=== PATIENT | female | born 1945 | race Hispanic/Latino ===

== ENCOUNTER 2017-08-14 09:03 | Outpatient (CLI) | payer MEDICARE ==
--- NOTE | 2017-08-14 14:46 | Mammography Report ---
BILATERAL DIGITAL SCREENING MAMMOGRAM with CAD: 08/14/17 09:03:00 CLINICAL: Routine screening. COMPARISON:03/12/16 FINDINGS: The breasts are heterogeneously dense, which may obscure small masses. No mass, architectural distortion or suspicious calcifications. IMPRESSION: No mammographic evidence of malignancy. BI-RADS CATEGORY: 1 - - Negative RECOMMENDATION: Routine mammographic screening in one year. COMMENT: Patient follow-up letters are generated by our [employer] application.
== END 2017-08-14 09:04 | disposition home or self-care (01) ==
LOC: SPVWC 09:03
PROVIDERS: ATTEND Family Medicine
DX: Z12.31 Encounter for screening mammogram for malignant neoplasm of breast (principal)
CPT/HCPCS: 77067; G0202

== ENCOUNTER 2019-10-19 11:55 | Outpatient (CLI) | payer MEDICARE ==
--- NOTE | 2019-10-20 12:51 | Mammography Report ---
DIGITAL SCREENING MAMMOGRAM WITH CAD, 10/19/2019 INDICATION: Routine screening mammography. TECHNIQUE: Digital bilateral 2D mammography was obtained in the craniocaudal and mediolateral obliq ue projections. This examination was interpreted with the benefit of Computer-Aided Detection analysi s. COMPARISON: 03/12/2016 FINDINGS: Breast Density: The breasts are heterogeneously dense, which may obscure small masses. There is no evidence of dominant mass, suspicious calcifications or architectural distortion in eithe r breast. IMPRESSION: No mammographic evidence of malignancy. Follow up recommendation: Routine yearly BI-RADS Category 1: Negative. A "normal" or negative report should not discourage follow up or biopsy of a clinically significant f inding. A written summary of these findings will be mailed to the patient. The patient will be entered into a mammography reporting system which will generate a reminder letter for the patient's next appointmen t at the appropriate interval. The [employer] recommends yearly mammograms starting at age 40 and continuing as l carmen as a woman is in good health. Breast MRI is recommended for women with an approximate 20-25% or greater lifetime risk of breast cancer, including women with a strong family history of breast or ova sampson cancer or who have been treated for Hodgkin's disease. Signer Name: Maury Barriga MD Signed: 10/20/2019 12:47 PM Workstation Name: [id number]
== END 2019-10-19 11:56 | disposition home or self-care (01) ==
LOC: SPVWC 11:55
PROVIDERS: ATTEND Obstetrics & Gynecology
DX: Z12.31 Encounter for screening mammogram for malignant neoplasm of breast (principal)
CPT/HCPCS: 77067

== ENCOUNTER 2022-02-04 09:13 | Outpatient (CLI) | payer MEDICARE ==
--- NOTE | 2022-02-05 16:45 | Mammography Report ---
DIGITAL SCREENING MAMMOGRAM WITH CAD, 02/04/2022 CLINICAL INFORMATION / INDICATION: Routine screening mammography. TECHNIQUE: Digital bilateral 2D mammography was obtained in the craniocaudal and mediolateral obliqu e projections. This examination was interpreted with the benefit of Computer-Aided Detection analysis . COMPARISON: Prior mammogram 10/19/2019 FINDINGS: Breast Density: The breasts are heterogeneously dense, which may obscure small masses. No dominant mass, suspicious calcifications, or architectural distortion in either breast. There has been no significant change compared with the prior examination. IMPRESSION: No mammographic evidence of malignancy. Follow up recommendation: Routine yearly BI-RADS Category 1: NEGATIVE A "normal" or negative report should not discourage follow up or biopsy of a clinically significant f inding. A written summary of these findings will be mailed to the patient. The patient will be entered into a mammography reporting system which will generate a reminder letter for the patient's next appointmen t at the appropriate interval. The [employer] recommends yearly mammograms starting at age 40 and continuing as l carmen as a woman is in good health. Breast MRI is recommended for women with an approximate 20-25% or greater lifetime risk of breast cancer, including women with a strong family history of breast or ova sampson cancer or who have been treated for Hodgkin's disease. Signer Name: Kylah Velez MD Signed: 02/05/2022 4:40 PM Workstation Name: [id number]
== END 2022-02-04 09:14 | disposition home or self-care (01) ==
LOC: SPVWC 09:13
PROVIDERS: ATTEND Family Medicine
DX: Z12.31 Encounter for screening mammogram for malignant neoplasm of breast (principal)
CPT/HCPCS: 77067

== ENCOUNTER 2022-03-27 09:30 | Outpatient (CLI) | payer MEDICARE ==
--- NOTE | 2022-03-27 10:30 | Ultrasound Report ---
ULTRASOUND BREAST BILATERAL COMPLETE, 03/27/2022 CLINICAL INFORMATION / INDICATION: R92.2 DENSE BREAST. Patient presents for bilateral screening breas t ultrasound. TECHNIQUE: Complete sonographic evaluation of all 4 quadrants and retroareolar region was performed. COMPARISON: Prior mammogram 02/04/2022 FINDINGS: Right breast: Complete ultrasound of the right breast reveals dense fibroglandular tissue. No suspici ous cystic or solid lesion identified. Left breast: Complete ultrasound of the left breast reveals dense fibroglandular tissue. No suspiciou s cystic or solid lesion identified. IMPRESSION: No sonographic evidence of malignancy. Follow up recommendation: Routine yearly screening mammogram. BI-RADS Category 1: NEGATIVE. A normal or "negative" report should not preclude biopsy or follow-up of a clinically suspicious find ing. Signer Name: Kylah Velez MD Signed: 03/27/2022 10:26 AM Workstation Name: [id number]
== END 2022-03-27 09:31 | disposition home or self-care (01) ==
LOC: US 09:30
PROVIDERS: ATTEND Family Medicine
DX: R92.2 Inconclusive mammogram (principal)